=== PATIENT | male | born 1950 | race Caucasian/White ===

== ENCOUNTER 2016-11-11 07:18 | Day surgery (SDC) | payer OTHER, MEDICARE ==
[~2016-11-11 07:18] MED LIST: Lactated Ringers 1,000 ML IV SCH; Sodium Chloride 0.9% 10 ML Syringe FLUSH PRN; Sodium Chloride 0.9% 2.5 ML Syringe FLUSH PRN
[2016-11-11] MEDS ORDERED: Lidocaine 2% 5 ML SDV ONE (07:32)
[2016-11-11] MEDS ORDERED: Propofol 200 MG/20 ML SDV ONE (07:32)
--- NOTE | 2016-11-11 07:42 | PCM.PREANE ---
Preanesthetic Assessment - Anesthesia/Transfusion/Family Hx Anesthesia History: Prior Anesthesia Without Reaction Other Type of Anesthesia Reaction Comment: states went into respitory arrest 3 days after bladder surgery Family History of Anesthesia Reaction: No Transfusion History: No Prior Transfusion(s) - Review of Systems General: No Symptoms Pulmonary: No Symptoms Cardiovascular: No Symptoms Gastrointestinal: No symptoms Neurological: No Symptoms Other: Reports: None - Physical Assessment Height: 1.88 m Weight: 74.389 kg ASA Class: 2 Mental Status: Alert & Oriented x3 Dentition: Reports: Broken Tooth/Teeth, Missing Tooth/Teeth ROM/Head Extension: Full Lungs: Clear to auscultation, Normal respiratory effort Cardiovascular: Regular Rate (afib rate conterolled, 98 this am) - Allergies Allergies/Adverse Reactions: Allergies Allergy/AdvReac Type Severity Reaction Status Date / Time No Known Allergies Allergy Verified 11/17/15 15:23 - Acknowledgements Anesthesia Type Planned: MAC Pt an Appropriate Candidate for the Planned Anesthesia: Yes Alternatives and Risks of Anesthesia Discussed w Pt/Guardian: Yes Pt/Guardian Understands and Agrees with Anesthesia Plan: Yes Additional Comments: heavy alcohol use 5 drinks/day. has tremor upon arrival, recommend small dose of versed with colonoscopy PreAnesthesia Questionnaire - Past Health History Medical/Surgical History: Denies Medical/Surgical History HEENT History: Reports: Impaired Vision Other HEENT History: wears glasses Cardiovascular History: Reports: Afib (on ASA and metopralol), Hypertension Respiratory History: Reports: None Other Respiratory History: pts states that he went into respitory arrest 3 days after having surgery done on 11/18/15 but history states he had delirium tremers while in patient and was transferred to [place] for management. 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, hx fx leg Neurological History: Reports: None Psychiatric History: Reports: None Endocrine/Metabolic History: Reports: None Hematologic History: Reports: None Immunologic History: Reports: None Oncologic (Cancer) History: Reports: Bladder Dermatologic History: Reports: None - Infectious Disease History Infectious Disease History: Reports: Influenza, Measles - Past Surgical History Head Surgeries/Procedures: Reports: None HEENT Surgical History: Reports: None Cardiovascular Surgical History: Reports: None GI Surgical History: Reports: Appendectomy, Hernia, Inguinal Male Surgical History: Reports: TURBT-Transurethral Resection of Bladder Tumor Other Male Surgeries/Procedures: hx states partial nephrectomy with TURBT Endocrine Surgical History: Reports: None Neurological Surgical History: Reports: None Musculoskeletal Surgical History: Reports: None Oncologic Surgical History: Reports: None - SUBSTANCE USE Smoking Status *Q: Current Every Day Smoker Tobacco Use Within Last Twelve Months: Cigarettes Second Hand Smoke Exposure: Yes Days Per Week of Alcohol Use: 7 Number of Drinks Per Day: 5 Total Drinks Per Week: 35 Recreational Drug Use History: Yes Recreational Drug Type: Reports: Marijuana/Hashish - HOME MEDS Home Medications: Home Meds Aspirin [Adult Low Dose Aspirin EC] 81 mg PO DAILY 11/17/15 [History] Metoprolol Succinate [Toprol XL] 50 mg PO DAILY 11/17/15 [History] - CURRENT (IN HOUSE) MEDS Current Meds: Current Medications Lactated Ringer's (Ringers, Lactated) 1,000 mls @ 125 mls/hr IV ASDIRECTED PENG Sodium Chloride (Saline Flush) 10 ml FLUSH ASDIRECTED PRN PRN Reason: Keep Vein Open Sodium Chloride (Saline Flush) 2.5 ml FLUSH ASDIRECTED PRN PRN Reason: Keep Vein Open Discontinued Medications Lidocaine (Xylocaine-Mpf 2%) Confirm Administered Dose 5 ml .ROUTE .STK-MED ONE Stop: 11/11/16 07:33 Propofol (Diprivan 20 Ml) Confirm Administered Dose 400 mg .ROUTE .STK-MED ONE Stop: 11/11/16 07:33
[2016-11-11] MEDS ORDERED: Midazolam 1 MG/ML 2 ML SDV ONE (08:17)
--- NOTE | 2016-11-11 09:24 | PCM.OPNOTE ---
- General Post-Op/Procedure Note Date of Surgery/Procedure: 11/11/16 Operative Procedure(s): Screening colonoscopy Findings: rectal polyp, diverticulosis Pre Op Diagnosis: Screening colonoscopy Post-Op Diagnosis: diverticulosis, rectal polyp Anesthesia Technique: SHELBY Primary Surgeon: Elisha Swanson Condition: Good
--- NOTE | 2016-11-11 10:04 | PCM.POSTAN ---
POST ANESTHESIA ASSESSMENT - MENTAL STATUS Mental Status: alert, oriented - RESPIRATORY Respiratory Status: respiratory rate WNL, airway patent, O2 saturation stable - CARDIOVASCULAR CV Status: pulse rate WNL, blood pressure stable - GASTROINTESTINAL GI Status: no symptoms - POST OP HYDRATION Hydration Status: adequate & stable - OBSERVATIONS Free Text/Narrative:: no anesthesia problems
[2016-11-11 10:44] VITALS: BP 101/70
--- NOTE | 2016-11-11 21:47 | OR ---
SURGEON: DERIC FERNANDEZ MD DATE OF PROCEDURE: 11/11/2016 PREOPERATIVE DIAGNOSIS: Screening colonoscopy. POSTOPERATIVE DIAGNOSES: Diverticulosis and rectal polyp. PROCEDURE PERFORMED: Screening colonoscopy. INSTRUMENT USED: Olympus colonoscope. ANESTHESIA: MAC. EXTENT OF EXAM: To the cecum. PREPARATION: Fair. LIMITATIONS: None. INDICATIONS: The patient is a 66-year-old male, who presents for screening colonoscopy. The patient has several medical issues and underwent preoperative clearance prior to the procedure. In the office, we discussed the procedure as well as expected perioperative course. We discussed the risks including bleeding, infection, or damage to surrounding structures. The patient verbalized understanding and wishes to proceed. PROCEDURE IN DETAIL: The patient was brought into the endoscopy suite and placed in the left lateral decubitus position. A time-out was completed verifying the patient's name, age, date of , allergies, and procedure to be performed. Monitored anesthesia care was induced and continuous oxygen was provided via nasal cannula. After adequate sedation was achieved, a digital rectal exam was performed. This examination was within normal limits. A well-lubricated colonoscope was then inserted into the rectum and advanced under direct visualization to the level of the cecum. The cecum was identified by both visual and anatomic landmarks. A photograph was taken of the cecal cap. I was unable to retroflex the scope within the cecum due to significant looping more proximally. The scope was then fully withdrawn while examining the color, texture, anatomy, and integrity of the mucosa from the cecum to the anal canal. The patient had diverticulosis within the descending and sigmoid colon. The scope was then brought into the rectum, at which point I noted a 1-mm sessile polyp. This was removed using a cold biopsy forceps and sent to pathology labeled as rectal polyp. The scope was then retroflexed within the rectum to allow visualization of the anal canal opening. This appeared normal and a photograph was taken. The scope was straightened out and removed from the patient. The cecum to anus time was 19 minutes. The patient was taken to the recovery room in stable condition. ENDOSCOPIC DIAGNOSES: 1. Rectal polyp. 2. Diverticulosis. RECOMMENDATIONS: Follow up in clinic in 2 weeks. JERRY KWAN /[id number]
== END 2016-11-11 10:22 | disposition home or self-care (01) ==
LOC: MW.SDS 07:18
PROVIDERS: ATTEND Surgery
DX: Z12.11 Encounter for screening for malignant neoplasm of colon (principal); K62.1 Rectal polyp; K57.30 Diverticulosis of large intestine without perforation or abscess without bleeding
CPT/HCPCS: 45380; J2250; J7120; 00810; 88305; J2704

== ENCOUNTER 2017-01-18 07:30 | Day surgery (SDC) | payer OTHER, MEDICARE ==
[~2017-01-18 07:30] MED LIST changes: -Sodium Chloride 0.9% 10 ML Syringe FLUSH PRN; -Sodium Chloride 0.9% 2.5 ML Syringe FLUSH PRN; +ceFAZolin 1 GM in Premix Bag 1 BAG IV ONE
[2017-01-18] MEDS ORDERED: Lidocaine 2% 5 ML SDV ONE (08:39)
[2017-01-18] MEDS ORDERED: Ondansetron 4 MG/2 ML SDV ONE (08:39)
[2017-01-18] MEDS ORDERED: Propofol 200 MG/20 ML SDV ONE (08:39)
[2017-01-18] MEDS ORDERED: Midazolam 1 MG/ML 2 ML SDV ONE (08:39)
[2017-01-18] MEDS ORDERED: fentaNYL 250 MCG/5 ML SDV ONE (08:39)
[2017-01-18 09:01] LABS: CHLORIDE,CL 106 mmol/L (98-110); SODIUM,NA 140 mmol/L (136-146)
--- NOTE | 2017-01-18 09:16 | PCM.PREANE ---
Preanesthetic Assessment - Anesthesia/Transfusion/Family Hx Anesthesia History: Prior Anesthesia Without Reaction Other Type of Anesthesia Reaction Comment: DT post surgery Family History of Anesthesia Reaction: No Transfusion History: No Prior Transfusion(s) Intubation History: Unknown - Review of Systems General: No Symptoms Pulmonary: No Symptoms Cardiovascular: No Symptoms Gastrointestinal: No Symptoms Neurological: No Symptoms Other: Reports: None - Physical Assessment NPO Status Date: 01/17/17 NPO Status Time: 23:00 O2 Sat by Pulse Oximetry: 97 Respiratory Rate: 16 Vital Signs: Last Vital Signs Temp 37.0 C 01/18/17 08:53 Pulse 65 01/18/17 08:53 Resp 16 01/18/17 08:53 BP 115/76 01/18/17 08:53 Pulse Ox 97 01/18/17 08:53 Height: 1.88 m Weight: 73.028 kg ASA Class: 3 Mental Status: Alert & Oriented x3 Airway Class: Mallampati = 2 Dentition: Reports: Broken Tooth/Teeth, Missing Tooth/Teeth, Caries Thyro-Mental Finger Breadths: 3 Mouth Opening Finger Breadths: 3 ROM/Head Extension: Limited/Partial Lungs: Clear to Auscultation, Normal Respiratory Effort Cardiovascular: Regular Rate, Irregular Rhythm - Lab Values: Laboratory Last Values WBC 3.82 K/uL (4.0-11.0) L 01/18/17 08:34 RBC 4.45 M/uL (4.50-5.90) L 01/18/17 08:34 Hgb 14.4 g/dL (13.0-17.0) 01/18/17 08:34 Hct 43.4 % (38.0-50.0) 01/18/17 08:34 MCV 97.5 fL (80.0-98.0) 01/18/17 08:34 MCH 32.4 pg (27.0-32.0) H 01/18/17 08:34 MCHC 33.2 g/dL (31.0-37.0) 01/18/17 08:34 RDW Std Deviation 51.1 fl (28.0-62.0) 01/18/17 08:34 RDW Coeff of [place] 15 % (11.0-15.0) 01/18/17 08:34 Plt Count 125 K/uL (150-400) L 01/18/17 08:34 MPV 9.10 fL (7.40-12.00) 01/18/17 08:34 Neut % (Auto) 50.2 % (48.0-80.0) 01/18/17 08:34 Lymph % (Auto) 34.3 % (16.0-40.0) 01/18/17 08:34 [place] % (Auto) 10.5 % (0.0-15.0) 01/18/17 08:34 Eos % (Auto) 4.2 % (0.0-7.0) 01/18/17 08:34 Baso % (Auto) 0.8 % (0.0-1.5) 01/18/17 08:34 Neut # (Auto) 1.9 K/uL (1.4-5.7) 01/18/17 08:34 Lymph # (Auto) 1.3 K/uL (0.6-2.4) 01/18/17 08:34 [place] # (Auto) 0.4 K/uL (0.0-0.8) 01/18/17 08:34 Eos # (Auto) 0.2 K/uL (0.0-0.7) 01/18/17 08:34 Baso # (Auto) 0.0 K/uL (0.0-0.1) 01/18/17 08:34 Nucleated RBC % 0.0 /100WBC 01/18/17 08:34 Nucleated RBCs # 0 K/uL 01/18/17 08:34 Sodium 140 mmol/L (136-146) 01/18/17 08:34 Potassium 4.0 mmol/L (3.5-5.1) 01/18/17 08:34 Chloride 106 mmol/L (98-110) 01/18/17 08:34 Carbon Dioxide 26 mmol/L (21-31) 01/18/17 08:34 BUN 7 mg/dL (6.0-23.0) 01/18/17 08:34 Creatinine 0.9 mg/dL (0.6-1.5) 01/18/17 08:34 Est Cr Clr Drug Dosing 83.40 mL/min 01/18/17 08:34 Estimated GFR (MDRD) > 60.0 ml/min 01/18/17 08:34 Glucose 69 mg/dL (60-110) 01/18/17 08:34 Calcium 8.9 mg/dL (8.8-10.8) 01/18/17 08:34 - Allergies Allergies/Adverse Reactions: Allergies Allergy/AdvReac Type Severity Reaction Status Date / Time No Known Allergies Allergy Verified 11/17/15 15:23 - Blood Blood Available: No - Anesthesia Plan Pre-Op Medication Ordered: None Beta Jose D: Metoprolol Med Last Dose Date: 01/17/17 Med Last Dose Time: 09:00 - Acknowledgements Anesthesia Type Planned: General Anesthesia Pt an Appropriate Candidate for the Planned Anesthesia: Yes Alternatives and Risks of Anesthesia Discussed w Pt/Guardian: Yes Pt/Guardian Understands and Agrees with Anesthesia Plan: Yes PreAnesthesia Questionnaire - Past Health History Medical/Surgical History: Denies Medical/Surgical History HEENT History: Reports: Impaired Vision Other HEENT History: wears glasses Cardiovascular History: Reports: Afib, Hypertension Respiratory History: Reports: Other (See Below) Other Respiratory History: pts states that he went into respitory arrest 3 days after having surgery done on 11/18/15 but history states he had delirium tremers while in patient and was transferred to [place] for management. 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, hx fx leg Neurological History: Reports: Concussion Psychiatric History: Reports: None Endocrine/Metabolic History: Reports: None Hematologic History: Reports: None Immunologic History: Reports: None Oncologic (Cancer) History: Reports: Bladder Dermatologic History: Reports: None - Infectious Disease History Infectious Disease History: Reports: Influenza, Measles - Past Surgical History Head Surgeries/Procedures: Reports: None HEENT Surgical History: Reports: None Cardiovascular Surgical History: Reports: None GI Surgical History: Reports: Appendectomy, Colonoscopy, Hernia, Inguinal Male Surgical History: Reports: TURBT-Transurethral Resection of Bladder Tumor Other Male Surgeries/Procedures: hx states TURBT x2, tumor removed from left kidney Endocrine Surgical History: Reports: None Neurological Surgical History: Reports: None Musculoskeletal Surgical History: Reports: None Oncologic Surgical History: Reports: None - SUBSTANCE USE Smoking Status *Q: Current Every Day Smoker (now 1ppd) Tobacco Use Within Last Twelve Months: Cigarettes Second Hand Smoke Exposure: Yes Days Per Week of Alcohol Use: 7 Number of Drinks Per Day: 5 Total Drinks Per Week: 35 Recreational Drug Use History: Yes Recreational Drug Type: Reports: Marijuana/Hashish - HOME MEDS Home Medications: Home Meds Aspirin [Adult Low Dose Aspirin EC] 81 mg PO DAILY 11/17/15 [History] Metoprolol Succinate [Toprol XL] 50 mg PO DAILY 11/17/15 [History] - CURRENT (IN HOUSE) MEDS Current Meds: Current Medications Lactated Ringer's (Ringers, Lactated) 1,000 mls @ 100 mls/hr IV ASDIRECTED PENG Discontinued Medications Fentanyl (Sublimaze) Confirm Administered Dose 250 mcg .ROUTE .STK-MED ONE Stop: 01/18/17 08:40 Cefazolin Sodium/Dextrose 1 gm (/ Premix) 50 mls @ 100 mls/hr IV ONCALL ONE Stop: 01/18/17 07:29 Lidocaine (Xylocaine-Mpf 2%) Confirm Administered Dose 5 ml .ROUTE .STK-MED ONE Stop: 01/18/17 08:40 Midazolam HCl (Versed 1 Mg/Ml) Confirm Administered Dose 2 mg .ROUTE .STK-MED ONE Stop: 01/18/17 08:40 Ondansetron HCl (Zofran) Confirm Administered Dose 4 mg .ROUTE .STK-MED ONE Stop: 01/18/17 08:40 Propofol (Diprivan 20 Ml) Confirm Administered Dose 200 mg .ROUTE .STK-MED ONE Stop: 01/18/17 08:40
[2017-01-18] MEDS ORDERED: fentaNYL 100 MCG/2 ML SDV IVPUSH PRN (10:19)
[2017-01-18] MEDS ORDERED: ePHEDrine 50 MG/ML SDV ONE (10:20)
--- NOTE | 2017-01-18 11:39 | PCM.POSTAN ---
POST ANESTHESIA ASSESSMENT - MENTAL STATUS Mental Status: Alert, Oriented - RESPIRATORY Respiratory Status: respiratory rate WNL, Airway Patent, O2 Saturation Stable - CARDIOVASCULAR CV Status: Pulse Rate WNL, Blood Pressure Stable - GASTROINTESTINAL GI Status: No Symptoms - PAIN Pain Score: 0 - POST OP HYDRATION Hydration Status: Adequate & Stable Free Text/Narrative:: however, surgeon ordered 1L LR to be given and lasix to follow the bolus start for the post op period (phase II)
--- NOTE | 2017-01-18 11:42 | OR ---
SURGEON: Carla Sorensen M.D. DATE OF PROCEDURE: 01/18/2017 PREOPERATIVE DIAGNOSIS: Recurrent multiple papillary bladder tumors. POSTOPERATIVE DIAGNOSIS: Recurrent multiple papillary bladder tumors. PROCEDURE: TURBT. DESCRIPTION OF PROCEDURE: The patient was given general anesthesia, placed in dorsal lithotomy position, prepped and draped in sterile drapes. The resectoscope was introduced in the bladder. The tumors were mostly fulgurated. These were papillary tumors diagnosed earlier and some were resected. With that done, the procedure was terminated. All bleeding points were fulgurated. Estimated blood loss was 120 mL. An 18-[place] Thomas catheter was placed in the bladder connected to straight drainage. The patient tolerated the procedure well. He will be seen in the office two days to have his catheter taken out. MEERA / ANIYA /[id number]
[2017-01-18] MEDS ORDERED: Lactated Ringers 1,000 ML IV SCH (11:45)
--- NOTE | 2017-01-18 12:53 | PCM48HPAN ---
Post Anesthesia Note - EVALUATION WITHIN 48HRS OF ANESTHETIC Vital Signs in Normal Range: Yes Patient Participated in Evaluation: Yes Respiratory Function Stable: Yes Airway Patent: Yes Cardiovascular Function Stable: Yes Hydration Status Stable: Yes Pain Control Satisfactory: Yes Nausea and Vomiting Control Satisfactory: Yes Mental Status Recovered: Yes - COMMENTS/OBSERVATIONS Free Text/Narrative:: Good to go after fluid bolus treatment; smooth anesthesia course.
[2017-01-18] MEDS ORDERED: Furosemide 40 MG/4 ML VIAL IVPUSH ONE (14:00)
[2017-01-18 14:55] VITALS: BP 120/80
== END 2017-01-18 13:25 | disposition home or self-care (01) ==
LOC: MW.SDS 07:30
PROVIDERS: ATTEND Urology
DX: C67.9 Malignant neoplasm of bladder, unspecified (principal); I25.10 Atherosclerotic heart disease of native coronary artery without angina pectoris; I48.91 Unspecified atrial fibrillation; F17.210 Nicotine dependence, cigarettes, uncomplicated; Z90.49 Acquired absence of other specified parts of digestive tract; Z98.890 Other specified postprocedural states; Z79.82 Long term (current) use of aspirin; Z79.899 Other long term (current) drug therapy
CPT/HCPCS: 36415; 52234; 80048; 82962; 85025; 88305; 93005; J1940; J2250; J2405; J3010; J7120; 00912; J2704

== ENCOUNTER 2017-07-26 09:19 | Day surgery (SDC) | payer OTHER ==
[~2017-07-26 09:19] MED LIST changes: +Sodium Chloride 0.9% 10 ML Syringe FLUSH PRN; +Sodium Chloride 0.9% 2.5 ML Syringe FLUSH PRN; -ceFAZolin 1 GM in Premix Bag 1 BAG IV ONE; +ceFAZolin 2 GM in Premix Bag 1 BAG IV ONE
--- NOTE | 2017-07-26 11:00 | PCM.PREANE ---
Preanesthetic Assessment - Procedure Proposed Procedure: TURBT cysto - Anesthesia/Transfusion/Family Hx Anesthesia History: Prior Anesthesia Without Reaction (previous TURBT, partial Lt nephrectomy, inguinal hernia repair, appy) Other Type of Anesthesia Reaction Comment: DT post surgery Family History of Anesthesia Reaction: No Transfusion History: No Prior Transfusion(s) Intubation History: Unknown - Review of Systems General: No Symptoms, Other (daily alocohol use) Pulmonary: No Symptoms (30 years smoker, now less than 1/2 pack/day) Cardiovascular: Other (hx afib) Gastrointestinal: No Symptoms Neurological: Tremors Other: Reports: Easy Bruising (aspirin, eliquis. stopped both 07/21) - Physical Assessment NPO Status Date: 07/25/17 NPO Status Time: 22:00 O2 Sat by Pulse Oximetry: 95 Respiratory Rate: 14 Vital Signs: Last Vital Signs Temp 36.7 C 07/26/17 09:30 Pulse 100 07/26/17 09:30 Resp 14 07/26/17 09:30 BP 130/79 07/26/17 09:30 Pulse Ox 95 07/26/17 09:30 Height: 1.88 m Weight: 74.389 kg ASA Class: 3 Mental Status: Alert & Oriented x3 Airway Class: Mallampati = 1 Dentition: Reports: Broken Tooth/Teeth, Missing Tooth/Teeth, Caries Thyro-Mental Finger Breadths: 3 Mouth Opening Finger Breadths: 3 ROM/Head Extension: Full Lungs: Clear to Auscultation Cardiovascular: Irregular Rhythm - Allergies Allergies/Adverse Reactions: Allergies Allergy/AdvReac Type Severity Reaction Status Date / Time No Known Allergies Allergy Verified 07/21/17 10:02 - Blood Blood Available: No - Anesthesia Plan Pre-Op Medication Ordered: None - Acknowledgements Anesthesia Type Planned: General Anesthesia Pt an Appropriate Candidate for the Planned Anesthesia: Yes Alternatives and Risks of Anesthesia Discussed w Pt/Guardian: Yes Pt/Guardian Understands and Agrees with Anesthesia Plan: Yes PreAnesthesia Questionnaire - Past Health History Medical/Surgical History: Denies Medical/Surgical History HEENT History: Reports: Impaired Vision Other HEENT History: wears glasses Cardiovascular History: Reports: Afib, Hypertension Respiratory History: Reports: Other (See Below) Other Respiratory History: pts states that he went into respitory arrest 3 days after having surgery done on 11/18/15 but history states he had delirium tremers while in patient and was transferred to [place] for management. Gastrointestinal History: Reports: None Genitourinary History: Reports: Renal Disease Other Genitourinary History: hx of renal cancer Musculoskeletal History: Reports: Fracture Other Musculoskeletal History: hx of fx leg and thumb Neurological History: Reports: Concussion Psychiatric History: Reports: None Endocrine/Metabolic History: Reports: None Hematologic History: Reports: Anticoagulation Therapy Immunologic History: Reports: None Oncologic (Cancer) History: Reports: Renal Dermatologic History: Reports: None - Infectious Disease History Infectious Disease History: Reports: Influenza, Measles - Past Surgical History GI Surgical History: Reports: Appendectomy, Hernia, Inguinal Male Surgical History: Reports: Nephrectomy Other Male Surgeries/Procedures: left partial nephrectomy Oncologic Surgical History: Reports: Other (See Below) Other Oncologic Surgeries/Procedures: left partial nephrectomy - SUBSTANCE USE Smoking Status *Q: Current Every Day Smoker Tobacco Use Within Last Twelve Months: Cigarettes Second Hand Smoke Exposure: Yes Days Per Week of Alcohol Use: 7 Number of Drinks Per Day: 5 Total Drinks Per Week: 35 Recreational Drug Use History: No Recreational Drug Type: Reports: Marijuana/Hashish - HOME MEDS Home Medications: Home Meds Aspirin [Adult Low Dose Aspirin EC] 81 mg PO DAILY 11/17/15 [History] Metoprolol Succinate [Toprol XL] 50 mg PO DAILY 11/17/15 [History] Apixaban [Eliquis] 1 tab PO DAILY 07/21/17 [History] - CURRENT (IN HOUSE) MEDS Current Meds: Current Medications Lactated Ringer's (Ringers, Lactated) 1,000 mls @ 100 mls/hr IV ASDIRECTED PENG Sodium Chloride (Saline Flush) 10 ml FLUSH ASDIRECTED PRN PRN Reason: Keep Vein Open Sodium Chloride (Saline Flush) 2.5 ml FLUSH ASDIRECTED PRN PRN Reason: Keep Vein Open Discontinued Medications Cefazolin Sodium/Dextrose 2 gm (/ Premix) 50 mls @ 100 mls/hr IV ONCALL ONE Stop: 07/26/17 07:29
[2017-07-26] MEDS ORDERED: Midazolam 1 MG/ML 2 ML SDV ONE (13:45)
[2017-07-26] MEDS ORDERED: fentaNYL 250 MCG/5 ML SDV ONE (13:45)
[2017-07-26] MEDS ORDERED: Ondansetron 4 MG/2 ML SDV ONE (13:45)
[2017-07-26] MEDS ORDERED: Lidocaine 2% 5 ML SDV ONE (13:45)
[2017-07-26] MEDS ORDERED: Propofol 200 MG/20 ML SDV ONE (13:45)
[2017-07-26] MEDS ORDERED: ceFAZolin 1 GM Vial ONE (14:39)
[2017-07-26] MEDS ORDERED: Sodium Chloride 0.9% 20 ML ONE (14:39)
[2017-07-26] MEDS ORDERED: Phenylephrine/Normal Saline 100 MCG/ML 10 ML Syringe ONE (14:44)
--- NOTE | 2017-07-26 15:54 | PCM.POSTAN ---
POST ANESTHESIA ASSESSMENT - MENTAL STATUS Mental Status: Alert, Oriented - RESPIRATORY Respiratory Status: Respiratory Rate WNL, Airway Patent, O2 Saturation Stable - CARDIOVASCULAR CV Status: Pulse Rate WNL, Blood Pressure Stable - GASTROINTESTINAL GI Status: No Symptoms - PAIN Pain Score: 0 - POST OP HYDRATION Hydration Status: Adequate & Stable
--- NOTE | 2017-07-26 16:02 | PCM48HPAN ---
Post Anesthesia Note - EVALUATION WITHIN 48HRS OF ANESTHETIC Vital Signs in Normal Range: Yes Patient Participated in Evaluation: Yes Respiratory Function Stable: Yes Airway Patent: Yes Cardiovascular Function Stable: Yes Hydration Status Stable: Yes Pain Control Satisfactory: Yes Nausea and Vomiting Control Satisfactory: Yes Mental Status Recovered: Yes
[2017-07-26 17:10] VITALS: BP 120/75
--- NOTE | 2017-07-26 22:16 | OR ---
SURGEON: Carla Sorensen M.D. DATE OF PROCEDURE: 07/26/2017 PREOPERATIVE DIAGNOSIS: History of papillary bladder tumors. POSTOPERATIVE DIAGNOSIS: History of papillary bladder tumors. OPERATION: Bladder tumor resection and fulguration. DESCRIPTION OF PROCEDURE: He is given general anesthesia. He was then placed in dorsal lithotomy position. The cystoscope was introduced in the bladder. Multiple papillary bladder tumors were visualized covering probably close to one-third of the total surface of the bladder. Since they are papillary, there were just scraped off the mucosa and all the bleeding points were fulgurated. With that done, the procedure was terminated. A 16-[place] Thomas catheter was inserted in the bladder. The patient tolerated the procedure well. Estimated blood loss was minimal, under 10 mL. The patient tolerated the procedure well and was moved to recovery room in good condition. The plan is to put mitomycin-C in his bladder in about 2 weeks. MEERA / ANIYA /[id number]
--- NOTE | 2017-08-30 14:12 | OR ---
SURGEON: Carla Sorensen M.D. DATE OF PROCEDURE: 07/26/2017 ADDENDUM: The tumor was large, and the margins were clear. MEERA / ANIYA /[id number]
== END 2017-07-26 16:50 | disposition home or self-care (01) ==
LOC: MW.SDS 09:19
PROVIDERS: ATTEND Urology
DX: C67.9 Malignant neoplasm of bladder, unspecified (principal); I25.10 Atherosclerotic heart disease of native coronary artery without angina pectoris; Z79.82 Long term (current) use of aspirin; Z79.899 Other long term (current) drug therapy; Z90.49 Acquired absence of other specified parts of digestive tract; Z98.890 Other specified postprocedural states; Z90.5 Acquired absence of kidney; F17.210 Nicotine dependence, cigarettes, uncomplicated
CPT/HCPCS: 52240; 88305; J0690; J2250; J2405; J3010; J7120; 00912; J2704

== ENCOUNTER 2017-12-08 09:12 | Day surgery (SDC) | payer OTHER ==
[~2017-12-08 09:12] MED LIST changes: +ceFAZolin 1 GM in Premix Bag 1 BAG IV ONE; -ceFAZolin 2 GM in Premix Bag 1 BAG IV ONE
[2017-12-08 12:51] VITALS: BP 122/73
== END 2017-12-08 10:50 | disposition home or self-care (01) ==
LOC: MW.SDS 09:12
PROVIDERS: ATTEND Urology
DX: C67.9 Malignant neoplasm of bladder, unspecified (principal); Z53.9 Procedure and treatment not carried out, unspecified reason; Z79.01 Long term (current) use of anticoagulants; Z79.82 Long term (current) use of aspirin; Z79.899 Other long term (current) drug therapy

== ENCOUNTER 2019-02-06 09:44 | Day surgery (SDC) | payer OTHER ==
[~2019-02-06 09:44] MED LIST changes: -Lactated Ringers 1,000 ML IV SCH; +Sodium Chloride 0.9% 1,000 ML IV SCH; +Sodium Chloride 0.9% 10 ML SDV IV PRN; -ceFAZolin 1 GM in Premix Bag 1 BAG IV ONE
[2019-02-06] MEDS ORDERED: Propofol 200 MG/20 ML SDV ONE (10:30)
[2019-02-06] MEDS ORDERED: fentaNYL 100 MCG/2 ML SDV ONE (10:30)
[2019-02-06] MEDS ORDERED: Lidocaine 2% 5 ML SDV ONE (10:32)
--- NOTE | 2019-02-06 10:40 | PCM.PREANE ---
Preanesthetic Assessment - Anesthesia/Transfusion/Family Hx Anesthesia History: Prior Anesthesia Without Reaction Other Type of Anesthesia Reaction Comment: DT post surgery Family History of Anesthesia Reaction: No Transfusion History: No Prior Transfusion(s) Intubation History: Unknown - Review of Systems General: No Symptoms Pulmonary: No Symptoms Cardiovascular: No Symptoms Gastrointestinal: No Symptoms Neurological: Tremors Other: Reports: None - Physical Assessment NPO Status Date: 02/05/19 Vital Signs: Last Vital Signs Temp 97.3 F 02/06/19 10:20 Pulse 90 02/06/19 10:20 Resp 18 02/06/19 10:20 BP 132/96 H 02/06/19 10:20 Pulse Ox 97 02/06/19 10:20 Height: 6 ft 2 in Weight: 71.214 kg ASA Class: 3 Mental Status: Alert & Oriented x3 Airway Class: Mallampati = 2 Dentition: Reports: Broken Tooth/Teeth, Missing Tooth/Teeth, Caries ROM/Head Extension: Limited/Partial Lungs: Clear to Auscultation, Normal Respiratory Effort Cardiovascular: Irregular Rhythm - Allergies Allergies/Adverse Reactions: Allergies Allergy/AdvReac Type Severity Reaction Status Date / Time No Known Allergies Allergy Verified 02/05/19 12:35 - Blood Blood Available: No - Anesthesia Plan Pre-Op Medication Ordered: None - Acknowledgements Anesthesia Type Planned: General Anesthesia Pt an Appropriate Candidate for the Planned Anesthesia: Yes Alternatives and Risks of Anesthesia Discussed w Pt/Guardian: Yes Pt/Guardian Understands and Agrees with Anesthesia Plan: Yes Additional Comments: PMH: copd, htn, nl stress test last week, pt denies CAD but dx is on chart, afib - has stopped elliquis, smoker PLAN: tiva PreAnesthesia Questionnaire - Past Health History Medical/Surgical History: Denies Medical/Surgical History HEENT History: Reports: Impaired Vision Other HEENT History: wears glasses Cardiovascular History: Reports: Afib, Hypertension Respiratory History: Reports: Other (See Below) Other Respiratory History: pts states that he went into respitory arrest 3 days after having surgery done on 11/18/15 but history states he had delirium tremers while in patient and was transferred to [place] for management. Gastrointestinal History: Reports: None Genitourinary History: Reports: Renal Disease Other Genitourinary History: hx of renal cancer Musculoskeletal History: Reports: Arthritis, Fracture Other Musculoskeletal History: hx of fx leg and thumb Neurological History: Reports: Concussion Psychiatric History: Reports: None Endocrine/Metabolic History: Reports: None Hematologic History: Reports: Anticoagulation Therapy Immunologic History: Reports: None Oncologic (Cancer) History: Reports: Renal Dermatologic History: Reports: None - Infectious Disease History Infectious Disease History: Reports: Influenza, Measles - Past Surgical History GI Surgical History: Reports: Appendectomy, Hernia, Inguinal Other Male Surgeries/Procedures: removal of tumor on kidney - SUBSTANCE USE Smoking Status *Q: Current Every Day Smoker Tobacco Use Within Last Twelve Months: Cigarettes Days Per Week of Alcohol Use: 7 Number of Drinks Per Day: 4 Total Drinks Per Week: 28 - HOME MEDS Home Medications: Home Meds Aspirin [Adult Low Dose Aspirin EC] 81 mg PO DAILY 11/17/15 [History] Metoprolol Succinate [Toprol XL] 50 mg PO DAILY 11/17/15 [History] Apixaban [Eliquis] 1 tab PO DAILY 07/21/17 [History] Albuterol [Proventil HFA] 1 - 2 puff INH ASDIRECTED PRN 02/05/19 [History] Nicotine [Nicoderm CQ] 1 patch TRDERM ASDIRECTED 02/05/19 [History] Omeprazole 20 mg PO DAILY 02/05/19 [History] - CURRENT (IN HOUSE) MEDS Current Meds: Current Medications Sodium Chloride (Normal Saline) 1,000 mls @ 100 mls/hr IV ASDIRECTED PENG Sodium Chloride (Saline Flush) 10 ml FLUSH ASDIRECTED PRN PRN Reason: Keep Vein Open Sodium Chloride (Saline Flush) 2.5 ml FLUSH ASDIRECTED PRN PRN Reason: Keep Vein Open Sodium Chloride (Saline Flush) 10 ml FLUSH ASDIRECTED PRN PRN Reason: Keep Vein Open Sodium Chloride (Saline Flush) 2.5 ml FLUSH ASDIRECTED PRN PRN Reason: Keep Vein Open Sodium Chloride (Normal Saline) 10 ml IV ASDIRECTED PRN PRN Reason: IV Use Discontinued Medications Fentanyl (Sublimaze) Confirm Administered Dose 100 mcg .ROUTE .STK-MED ONE Stop: 02/06/19 10:31 Lidocaine (Xylocaine-Mpf 2%) Confirm Administered Dose 5 ml .ROUTE .STK-MED ONE Stop: 02/06/19 10:33 Propofol (Diprivan 20 Ml) Confirm Administered Dose 400 mg .ROUTE .STK-MED ONE Stop: 02/06/19 10:31
[2019-02-06] MEDS ORDERED: Midazolam 1 MG/ML 2 ML SDV ONE (11:19)
--- NOTE | 2019-02-06 11:55 | PCM.OPNOTE ---
- General Post-Op/Procedure Note Date of Surgery/Procedure: 02/06/19 Operative Procedure(s): diagnostic EGD and colonoscopy Findings: diverticulosis, 3 sigmoid colon polyps, duodenitis Pre Op Diagnosis: GI bleeding Post-Op Diagnosis: diverticulosis, 3 sigmoid colon polyps, duodenitis Anesthesia Technique: [facility] [place] Primary Surgeon: Elisha Swanson Pathology: stomach biopsies (antrum, body, and fundus) and 3 sigmoid colon polyps Condition: Good
[2019-02-06 12:23] VITALS: PULSE 87
--- NOTE | 2019-02-06 12:30 | PCM48HPAN ---
Post Anesthesia Note - EVALUATION WITHIN 48HRS OF ANESTHETIC Vital Signs in Normal Range: Yes Patient Participated in Evaluation: Yes Respiratory Function Stable: Yes Airway Patent: Yes Cardiovascular Function Stable: Yes Hydration Status Stable: Yes Pain Control Satisfactory: Yes Nausea and Vomiting Control Satisfactory: Yes Mental Status Recovered: Yes Vital Signs: Last Vital Signs Temp 97.3 F 02/06/19 10:20 Pulse 87 02/06/19 12:22 Resp 11 L 02/06/19 12:22 BP 101/70 02/06/19 12:22 Pulse Ox 96 02/06/19 12:22
--- NOTE | 2019-02-06 12:30 | PCM.POSTAN ---
POST ANESTHESIA ASSESSMENT - MENTAL STATUS Mental Status: Alert, Oriented - VITAL SIGNS Vital Signs: Last Vital Signs Temp 97.3 F 02/06/19 10:20 Pulse 87 02/06/19 12:22 Resp 11 L 02/06/19 12:22 BP 101/70 02/06/19 12:22 Pulse Ox 96 02/06/19 12:22 - RESPIRATORY Respiratory Status: Respiratory Rate WNL, Airway Patent - CARDIOVASCULAR CV Status: Pulse Rate WNL, Blood Pressure Stable - GASTROINTESTINAL GI Status: No Symptoms - POST OP HYDRATION Hydration Status: Adequate & Stable
[2019-02-06 12:37] VITALS: BP 101/71
--- NOTE | 2019-02-07 12:57 | OR ---
SURGEON: ELISHA SWANSON MD DATE OF PROCEDURE: 02/06/2019 PREOPERATIVE DIAGNOSIS: Gastrointestinal bleed. POSTOPERATIVE DIAGNOSES: 1. Duodenitis. 2. Diverticulosis. 3. Sigmoid colon polyps x3. PROCEDURES PERFORMED: Diagnostic esophagogastroduodenoscopy and colonoscopy. PRIMARY SURGEON: Elisha Swanson MD. ANESTHESIA: MAC. INSTRUMENT USED: Olympus endoscope and colonoscope. EXTENT OF EXAM: To the second portion of duodenum, to the cecum. PREPARATION: Good. LIMITATIONS: None. INDICATIONS FOR EXAMINATION: The patient is a 68-year-old male with multiple medical problems who presents with a GI bleed. He was taken off his anticoagulation and started on Protonix. He has been feeling well and no longer had melena. His hemoglobin has remained stable. To look for source of his GI bleeding, he was scheduled for a diagnostic EGD and colonoscopy. I explained the procedures; expected perioperative course; and risks including bleeding, infection, or damage to surrounding structures including perforation. The patient verbalized understanding and wishes to proceed. PROCEDURE IN DETAIL: The patient was brought into the endoscopy suite and placed in the left lateral decubitus position. A time-out was completed verifying the patient's name, age, date of , allergies, and procedure to be performed. A bite block was placed in the patient's mouth. Monitored anesthesia care was induced and continuous oxygen was provided via nasal cannula throughout the procedure. After adequate sedation was achieved, a well-lubricated endoscope was placed in the patient's mouth and advanced under direct visualization to the second portion of duodenum. This appeared normal and a photograph was taken. The scope was then straightened out and fully withdrawn while examining the color, texture, anatomy, and integrity of the mucosa from the cecum to the anal canal. The patient was found to have some duodenitis in the duodenal bulb. A photograph of this was taken. There was no gross ulceration or stigmata of recent bleed. The scope was brought into the stomach and a photograph was taken of the GE junction and pylorus, both appeared normal. The gastric mucosa was free of pathology. Biopsies were taken of the gastric antrum, body, and fundus, and sent for histologic review and H. pylori testing. The scope was brought into the distal esophagus and a photograph was taken of the Z-line. This appeared normal. The remainder of the esophageal mucosa appeared healthy and normal. The scope was removed and this portion of procedure terminated. A digital rectal exam was performed. This exam was within normal limits. A well- lubricated colonoscope was inserted in the rectum and advanced under direct visualization to the level of the cecum. The cecum was identified by both visual and anatomic landmarks. A photograph was taken of the cecal cap; however, I was unable to retroflex the scope within the cecum due to looping of the scope more proximally. The scope was then fully withdrawn while examining the color, texture, anatomy, and integrity of the mucosa from the cecum to the anal canal. The patient was found to have diverticulosis scattered throughout the descending and sigmoid colon. There was a small area of narrowing due to the amount of diverticula in one spot, which was consistent with the findings on the CT scan. In the descending sigmoid colon, the patient was found to have 3 small sessile polyps, these were removed in piecemeal fashion using cold biopsy forceps. The scope was brought into the rectum and retroflexed to allow visualization of the anal canal opening. This appeared normal and a photograph was taken. The scope was then straightened out and fully withdrawn. The cecum to anus time was 10 minutes. The patient tolerated the procedure well and was taken to the PACU in stable condition. ENDOSCOPIC DIAGNOSES: 1. Duodenitis. 2. Diverticulosis. 3. Sigmoid colon polyps x3. RECOMMENDATIONS: Follow up in clinic in 2 weeks. JERRY KWAN /[id number]
== END 2019-02-06 12:55 | disposition home or self-care (01) ==
LOC: MW.SDS 09:44
PROVIDERS: ATTEND Surgery
DX: K57.31 Diverticulosis of large intestine without perforation or abscess with bleeding (principal); K29.81 Duodenitis with bleeding; K63.5 Polyp of colon; K31.89 Other diseases of stomach and duodenum; D64.9 Anemia, unspecified; I10 Essential (primary) hypertension; I48.91 Unspecified atrial fibrillation; I25.10 Atherosclerotic heart disease of native coronary artery without angina pectoris; J44.9 Chronic obstructive pulmonary disease, unspecified; F17.210 Nicotine dependence, cigarettes, uncomplicated; C67.9 Malignant neoplasm of bladder, unspecified; C64.2 Malignant neoplasm of left kidney, except renal pelvis; M19.90 Unspecified osteoarthritis, unspecified site; Z86.010 Personal history of colon polyps; Z79.82 Long term (current) use of aspirin; Z79.01 Long term (current) use of anticoagulants; Z79.899 Other long term (current) drug therapy
CPT/HCPCS: 36415; 43239; 45380; 84132; J2001; J2250; J2704; J3010; 00813; 88305; 88312

== ENCOUNTER 2022-01-28 12:53 | Emergency (ER) | payer OTHER ==
[2022-01-28 13:07] VITALS: BP 105/72; PULSE 78
[2022-01-28] MEDS ORDERED: Sodium Chloride 0.9% 1,000 ML IV ONE (13:11)
[2022-01-28 14:17] LABS: CARBON DIOXIDE,CO2 24.6 mmol/L (21.0-32.0); POTASSIUM,K 3.6 mmol/L (3.5-5.1)
== END 2022-01-28 15:04 | disposition home or self-care (01) ==
LOC: MW.ED 12:53
DX: R42 Dizziness and giddiness (principal); I10 Essential (primary) hypertension; Z79.899 Other long term (current) drug therapy; Z79.01 Long term (current) use of anticoagulants
CPT/HCPCS: 36415; 80053; 85025; 93005; 96360; 99284; J7030; 93010; 99283

== ENCOUNTER 2022-09-16 11:35 | Emergency (ER) | payer OTHER ==
[2022-09-16] MEDS: Sodium Chloride 0.9% 2.5 ML Syringe FLUSH PRN (12:05)
[2022-09-16] MEDS: Sodium Chloride 0.9% 10 ML Syringe FLUSH PRN (12:05)
[2022-09-16 12:31] LABS: CARBON DIOXIDE,CO2 27.1 mmol/L (21.0-32.0); POTASSIUM,K 3.7 mmol/L (3.5-5.1)
[2022-09-16 12:37] LABS: CORONAVIRUS COVID-19 NAA NEGATIVE (NEGATIVE); INFLUENZA A NAA NEGATIVE (NEGATIVE); INFLUENZA B NAA NEGATIVE (NEGATIVE)
[2022-09-16] MEDS: Iopamidol 755 MG/ML 500 ML Multipack Bottle IVPUSH STA (13:38)
[2022-09-16 14:42] VITALS: BP 121/75; PULSE 83
== END 2022-09-16 15:05 | disposition home or self-care (01) ==
LOC: MW.ED 11:35
DX: K62.89 Other specified diseases of anus and rectum (principal); I10 Essential (primary) hypertension; Z72.0 Tobacco use; Z20.822 Contact with and (suspected) exposure to COVID-19
CPT/HCPCS: 0240U; 36415; 74177; 80053; 83605; 85025; 93005; 99284; J3490; Q9967; 93010